=== PATIENT | female | born 1960 | race Asian ===

== ENCOUNTER 2024-09-01 08:47 | Emergency (ER) | payer MEDICARE, SELFPAY ==
[2024-09-01] VITALS (11 sets, daily range): BP systolic 169–210; BP diastolic 89–117; PULSE 63–87; RESP 18–118; TEMP 36.6; O2SAT 92–100; BMI 21.2
--- NOTE | 2024-09-01 09:25 | PC.NURSE ---
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
--- NOTE | 2024-09-01 10:25 | ED.SKABFB ---
HPI - Skin/Abscess/Foreign Bdy General Chief complaint: Skin/Abscess/Foreign Body Stated complaint: rash on on body Time Seen by Provider: 09/01/24 10:25 Source: patient and official court interpreter Mode of arrival: Ambulatory Limitations: language barrier (Used official court interpreter service) History of Present Illness HPI narrative: 64-year-old female reported chronic medical issues who reports a rash suspicion of allergies that has been on and off for several months patient notes it is itchy show get a rash that shows up for about an hour to and then sort of resolved she describes it as red very small bumps throughout her torso extremities sometimes neck. Does not really appreciated on her face. She notes it tends to be more in the evening. No fevers no chills. No new chest pain or shortness of breath, no nausea or vomiting. No swelling of lips, airway or tongue. Patient has not had any diarrhea. She took an antihistamine she was unsure if it helped cause of the rash normally goes away after an hour 2. She does not think she was had any new exposures but noticed there seems to be sometimes with be for chicken we will seemed to exacerbate symptoms. No daily prescriptions. She had a cyst removed from her uterus about 20 years ago. No known drug allergies. No tobacco, alcohol or recreational drugs she does use coffee. Patient is traveling back to [facility] for 2 months tomorrow. But currently living locally with family. Related Data Previous Rx's Medication Instructions Recorded loratadine 10 mg tablet (Allergy 10 mg PO DAILY #30 tabs 09/01/24 Relief (loratadine)) prednisone 10 mg tablets in a dose See Rx Instructions PO .COMPLEX 09/01/24 pack #21 ea Allergies Allergy/AdvReac Type Severity Reaction Status Date / Time No Known Drug Allergies Allergy Verified 09/01/24 09:16 Review of Systems Review of Systems ROS Unobtainable: All systems reviewed & are unremarkable except as noted in HPI and below Patient History Social History Smoking Status: Never smoker Smoking Status: Never smoker Exam Narrative Exam Narrative: GEN: well nourished, well appearing female, alert and oriented x 3, patient appears to be in no acute distress. HEENT: Atraumatic, pupils are equal round reactive to light, extraocular movements are intact, nares are clear, Throat is clear without any exudates, erythema, tonsillar enlargement or uvular deviation, no swelling of lips tongue or airway. Normal speech. HEART: Regular rate and rhythm without murmur, clicks, rubs. LUNGS:Lungs clear to auscultation, no wheezes, rales, crackles, chest moves symmetrically ABD:bowel sounds normal, soft, non-tender, no guarding, rebound, rigidity, no masses noted, no hepatosplenomegaly MSCL: Non-tender, no muscle atrophy, muscles strength 5/5 upper and lower extremities, full range of motion, normal gait NEURO:CN 2-12 intact, sensation normal SKIN: Patient has small area of erythema that is slightly raised and circular appears to be similar to a hive no other rashes currently appreciated this is on her right flank patient states her rash is mostly gone that is the only spot she was really appreciating currently. Initial Vital Signs Initial Vital Signs: Vital Signs Pulse Rate 78 09/01/24 09:11 Pulse Oximetry 99 09/01/24 09:11 Course Vital Signs Vital signs: Vital Signs - 8 hr 09/01/24 11:00 09/01/24 11:20 09/01/24 11:21 Temperature Pulse Rate 63 Respiratory Rate Blood Pressure 189/92 H Pulse Oximetry 92 97 Oxygen Delivery Method 09/01/24 11:30 Temperature 97.8 F Pulse Rate 87 Respiratory Rate 118 H Blood Pressure 189/89 H Pulse Oximetry 100 Oxygen Delivery Method Room Air MDM - Skin/Abscess/Foreign Bdy MDM Narrative Medical decision making narrative: Suspect by patient was having hives or urticaria but her rashes not currently present accept for 1 location. She describes sort of longstanding with no rapidly worsening symptoms low suspicion for anaphylaxis. She does note certain foods might be a trigger she was not had food allergies in the past states when she eats beef or certain types of chicken this might be correlation. Plan for daily antihistamine such as loratadine [id number] we will give a short course of prednisone to see if this is helpful. Discussed return precautions. Discussed also keeping a log of things that maybe triggers and holding things that is seem to exacerbate her symptoms. Discharge Plan Departure Patient Disposition: Home Clinical Impression: Hives Instructions: DI for Hives Activity Restrictions/Additional Instructions: Follow up for recheck if you are not having any improvement. From your description of your rash I suspect you maybe having hives or urticaria this can sometimes be secondary to an allergy but there are other reasons this can occur so if your symptoms are not improving with treatment please follow up. Take antihistamine such as loratadine or Claritin [id number] daily. You can continue this medication long-term if it was helpful. Can take a short course of steroid to see if this is helpful for your symptoms. Prescription sent to [facility] in [place]. Please return for fevers, any new swelling of your lips tongue or airway, chest pain or shortness of breath, rapidly worsening rash any blisters or painful rash, vomiting or other new or concerning changes Prescriptions: New loratadine [Allergy Relief (loratadine)] 10 mg tablet 10 mg PO DAILY Qty: 30 0RF prednisone 10 mg tablets,dose pack See Rx Instructions .ROUTE .COMPLEX Qty: 21 0RF Rx Instructions: 6 tabs p.o. x1 day, then 5 tabs p.o. x1 day, then 4 tablets p.o. x1 day, then 3 tabs p.o. x1 day, then 2 tabs p.o. x1 day, then 1 tab p.o. x1 day Stand Alone Forms: Patient Portal/API/Survey
--- NOTE | 2024-09-01 11:10 | PC.NURSE ---
Intermittent headache; known now.
== END 2024-09-01 11:30 | disposition home or self-care (01) ==
PROVIDERS: Emergency Provider Emergency Medicine
DX: L50.9 Urticaria, unspecified (principal)
CPT/HCPCS: 99281